=== PATIENT | male | born 2000 | race Caucasian/White ===

== ENCOUNTER 2021-09-24 02:53 | Emergency (ER) | payer BC ==
[~2021-09-24] VITALS: Ht 180.3 cm; Wt 79.5 kg
[~2021-09-24 02:53] MED LIST: AMOXICILLIN 8751 TAB PO; MAGIC MOUTH PO; MOTRIN 400400 MG/TAB PO; NORCO 325 MG-51 TAB PO; PREDNISONE20 MG PO; ROXICODONE 55 MG/TAB PO; TYLENOL 325MG325 MG PO; WELLBUTRIN 100100 MG PO; ZOVIRAX400 MG PO
[2021-09-24 02:57] VITALS: TEMP 98.3
[2021-09-24 04:18] VITALS: BP 123/61; PULSE 86
== END 2021-09-24 04:18 | disposition home or self-care (01) ==
LOC: COL.ER 02:53
DX: S51.811A Laceration without foreign body of right forearm, initial encounter (principal); W25.XXXA Contact with sharp glass, initial encounter; Y92.009 Unspecified place in unspecified non-institutional (private) residence as the place of occurrence of the external cause